=== PATIENT | male | born 1955 | race Two or more races ===

== ENCOUNTER 2020-03-02 23:19 | Inpatient (IN) | payer MEDICARE, MEDICAID ==
[~2020-03-02] VITALS: Ht 152.4 cm; Wt 57.7 kg
[2020-03-02] MEDS ORDERED: LIDOCAINE 2% JEL UROJET 10 ML MM ONE (23:27)
[2020-03-02] MEDS ORDERED: IV NS 0.9% 500 ML BAG IV ONE (23:30)
--- NOTE | 2020-03-02 23:35 | NUR ---
BIBRA 88 FROM C/O ALTERED MENTAL STATUS. PER RA, PATIENT WAS COMBATIVE WITH THE AMBULANCE PERSONEL. PATIENT IS AAOX2. NO SOB. BREATHING EVENLY AND UNLABORED ON ROOM AIR. CONNECTED TO THE PIZZA DRIVER.
[2020-03-02 23:38] LABS: BASOPHILS # (AUTO) 0.1 /CMM (0.0-0.2); BASOPHILS % (AUTO) 0.8 % (0.0-2.0); EOSINOPHILS % (AUTO) 17.4 % (0.0-6.0); HEMATOCRIT 39 % (39-51); HEMOGLOBIN 13.5 g/dL (13.5-17.5); LYMPHOCYTES # (AUTO) 2.6 /CMM (0.8-4.8); LYMPHOCYTES % (AUTO) 24.7 % (20.0-44.0); MEAN CORPUSCULAR HGB CONC 35 g/dl (31.0-36.0); MEAN CORPUSCULAR VOLUME 100 fL (80-96); MONOCYTES # (AUTO) 1.4 /CMM (0.1-1.30); MONOCYTES % (AUTO) 13.7 % (2.0-12.0); NEUTROPHILS # (AUTO) 4.5 /CMM (1.8-8.9); NEUTROPHILS % (AUTO) 43.4 % (43.0-81.0); PLATELET COUNT (AUTO) 141 /CMM (150-450); RED BLOOD CELL COUNT(AUTO) 3.87 MIL/uL (4.5-6.0); WHITE BLOOD COUNT (AUTO) 10.3 K/uL (4.3-11.0)
--- NOTE | 2020-03-02 23:38 | NUR ---
PATIENT'S BLOOD COLLECTED AND SENT TO THE LAB.
--- NOTE | 2020-03-02 23:43 | NUR ---
PATIENT TAKEN TO CT.
[2020-03-02 23:49] LABS: SERUM AMMONIA 138 umol/L (11-32)
--- NOTE | 2020-03-02 23:50 | NUR ---
RETURNED FROM CT.
[2020-03-02 23:54] LABS: CALCIUM, SERUM 9.6 mg/dL (8.5-10.1); CARBON DIOXIDE 20 mmol/L (21-32); CHLORIDE 97 mmol/L (98-107); CREATININE 1.3 mg/dL (0.6-1.3); GLUCOSE 112 mg/dL (74-106); POTASSIUM 4.1 mmol/L (3.5-5.1); SODIUM SERUM 129 mmol/L (136-145); UREA NITROGEN, BLOOD 18 mg/dL (7-18)
[2020-03-03 00:05] LABS: THYROID STIMULATING HORMONE 3.867 uIU/mL (0.358-3.74)
[2020-03-03 00:07] LABS: ALANINE AMINOTRANSFERASE 37 U/L (12-78); ALBUMIN 2.4 g/dL (3.4-5.0); ALCOHOL, BLOOD < 3 mg/dL (0-0); ALKALINE PHOSPHATASE 201 U/L (46-116); ASPARTATE AMINOTRANSFERASE 51 U/L (15-37); BILIRUBIN,DIRECT 2.2 mg/dL (0.0-0.2); BILIRUBIN,TOTAL 3.4 mg/dL (0.2-1.0)
[2020-03-03 00:08] LABS: ACETAMINOPHEN < 2 ug/ml (10-30)
[2020-03-03 00:37] LABS: APPEARANCE,URINE CLEAR (CLEAR); BILIRUBIN,URINE SMALL (NEGATIVE); BLOOD, URINE NEGATIVE Ery/uL (NEGATIVE); COLOR,URINE YELLOW (YELLOW); LEUKOCYTE ESTERASE ,URINE NEGATIVE (NEGATIVE); NITRITE, URINE NEGATIVE (NEGATIVE); PROTEIN,URINE NEGATIVE (NEGATIVE); UGLUCOSE NEGATIVE (NEGATIVE); UROBILINOGEN,URINE >=8.0 EU/dL (0.2)
--- NOTE | 2020-03-03 00:41 | NUR ---
DR. MOODY SPEAKING WITH KALEIGH RATLIFF DNP REGARDING ADMISSION
[2020-03-03 00:57] LABS: BACTERIA,URINE None seen /HPF (None Seen); MUCUS,URINE Few /LPF (None Seen); RBC,URINE 0-2 /HPF (0-2); SQUAMOUS EPITHELIAL CELL,UR Rare /HPF (None Seen); URINE AMORPHOUS URATE Few /HPF (None Seen); WBC,URINE 0-2 /HPF (0-3)
[2020-03-03] MEDS ORDERED: Z GUARD REMEDY 2 OZ OINT TP PRN (01:00)
[2020-03-03] MEDS ORDERED: LORAZEPAM INJ 2 MG/ML VIAL IV PRN (01:00)
[2020-03-03] MEDS ORDERED: ONDANSETRON HCL/PF 4 MG/2 ML VIAL IVP PRN (01:00)
--- NOTE | 2020-03-03 01:51 | NUR ---
BED ASSIGNMENT 328-1 TELE
--- NOTE | 2020-03-03 01:52 | NUR ---
PATIENT IS SLEEPING. EASILY AROUSABLE TO VERBAL STIMULI. CONNECTED TO MONITOR. BREATHING EVENLY AND UNLABORED ON ROOM AIR. SIDE RAILS ARE UP FOR SAFETY. BED AT THE LOWEST POSITION.
--- NOTE | 2020-03-03 01:59 | NUR ---
REPORT GIVEN TO HOUSTON RIOS FOR MICHAEL.
[2020-03-03 02:30] VITALS: BP 113/78
--- NOTE | 2020-03-03 02:30 | NUR ---
ADMISSION NOTE PT ADMITTED TO KALEIGH RATLIFF MORTGAGE ANALYST TELE DX OF HEPATIC ENCEPHALOPATHY AND HYPONATREMIA. PT BROUGHT IN BE EMS WITH AMS AND WAS COMBATIVE DURING TRANSPORT. AT THIS TIME PT IS LETHARGIC RESPONSIVE TO PAIN. PT IS NON VERBAL AT THIS TIME. PT BECOME SOMEWHAT COMBATIVE WHEN BEING REPOSITIONED AND TURNED. PT HAS RAC #20 GAUGE PATENT FLUSHED. SKIN IS INTACT AND DRY. ADMISSION ASSESSMENT TO BE PERFORMED WITH LIMITED ER RECORDS. PT IS POOR HISTORIAN AT THIS TIME. NEW ORDERS RECIEVED.
[2020-03-03] MEDS: IV NS 0.9% 1,000 ML IV PRN ×2 (02:41→22:24)
[2020-03-03 04:00] VITALS: BP 122/77
--- NOTE | 2020-03-03 07:30 | NUR ---
RECLAIMER NOTES PT IN BED, ASLEEP, EASY TO AROUSE, ALERT AND VERBALLY RESPONSIVE, NO COMPLAINT OF PAIN, BREATHING PATTERN NORMAL, CALL LIGHT WITHIN REACH, ASSISTED WITH NEEDS, IV FLUIDS INFUSING WELL, NEEDS ATTENDED.
[2020-03-03 08:00] VITALS: BP 118/83
[2020-03-03] MEDS: LACTULOSE 10 G/15 ML UDC (PYXIS) PO SCH ×4 (08:18→20:04)
[2020-03-03] MEDS: RIFAXIMIN 550 MG TABLET PO SCH ×2 (08:18→16:30)
[2020-03-03] MEDS: PANTOPRAZOLE 40 MG VIAL IV SCH (08:18)
--- NOTE | 2020-03-03 10:04 | NUR ---
Chemical Laboratory Assistant consult requested by Adrian Khanna DNP for hepatic encephalopathy, possible substance use, AMS. Per RN notes, patient is non-verbal at this time. Patient is not interviewable at this time. Plan: SW to follow-up with this patient when he is awake and alert. SW to remain available for all needs regarding this patient.
--- NOTE | 2020-03-03 11:43 | NUR ---
AIRPORT PLANNER NOTES PT IN BED, RESTING, AWAKE, ALERT, ABLE TO MAKE NEEDS KNOWN, COMPLIANT WITH MEDS, CALL LIGHT WITHIN REACH, ASSISTED WITH NEEDS, SEEN BY DR. REID, ALSO SEEN BY SPEECH THERAPIST, NEW ORDERS GIVEN, WILL CONTINUE TO MONITOR.
[2020-03-03 12:00] VITALS: BP 113/78
[2020-03-03 13:16] LABS: URINE SODIUM, RANDOM 95 mmol/l (40-220)
[2020-03-03 13:25] LABS: OSMOLALITY,URINE 489 mOS/kg (340-1090)
[2020-03-03 16:00] VITALS: BP 113/71
--- NOTE | 2020-03-03 16:44 | NUR ---
Public Address Technician consult requested by Adrian Khanna DNP for hepatic encephalopathy, possible substance use, AMS. This SW met with the patient at bedside. Patient is alert and oriented x4. SW found patient lying in bed diagonally, patient is Citizen [place] speaking, and this SW conducted this assessment in [place]. Patient is a 64-year-old male. Patient informed this SW that he has lived in [place] for 35 years. Patient reports that he is originally from [place]. SW inquired about patient family and friends, patient reports that his family is in [place] and his only friend/neighbor is Leesa . Patient provided verbal consent to inform neighbor Leesa that patient is in the hospital. Patient asked this SW regarding patient returning home, this SW informed the patient that the patient physician would provide approval to be discharged when patient is medically cleared. Patient informed this SW that he would need transportation back to his home as he does not drive and does not have family or friends who are able to pick him up after discharge. Patient asked this SW to provide him with updates regarding discharge as soon as this SW knows more information. This SW informed the patient that this SW would remain available for all needs. Plan: SW to follow-up with patient prior to discharge. SW to discuss transportation with case management for discharge planning. SW remains available for all needs regarding this patient.
--- NOTE | 2020-03-03 18:36 | NUR ---
PRODUCT MANAGER FINANCIAL SERVICES CLOSING NOTES PATIENT RESTING IN BED, AWAKE, A/O X3, WITH NO C/O PAIN. PATIENT ON RA WITH NO C/O SOB, NO ACUTE RESPIRATORY DISTRESS NOTED. PT ON TELE MONITOR WITH SR; HR 89 WITH PVC. PT IS CONTINENT WITH URINAL AT BEDSIDE. IV TO LT AC #20G ; SL, PATENT AND INTACT FLUSING WELL WITH NO SIGNS OF REDNESS OR SWELLING NOTED. BED IS AT LOWEST POSITION WITH SIDE RAILS UPX2 AND CALL LIGHT WITHIN REACH. WILL ENDORSE TO ONCOMING SHIFT.
--- NOTE | 2020-03-03 19:30 | NUR ---
CHANNEL MARKETING COORDINATOR OPENING NOTES REPORT RECIEVED FROM OZZY RIOS. PATIENT IN BED, AWAKE, A/O X3, DENIES PAIN. PATIENT ON RA WITH NO S/S OF SOB RESP EVEN AND UNLABORED. PT ON TELE MONITOR WITH SR; HR 92 WITH OCCASIONAL PVC PER RACE ENGINE BUILDER. CONTINENT WITH URINAL AT BEDSIDE. IV TO LT AC #20G ; PATENT AND INTACT IVF NS AT 75 INFUSING WITH NO SIGNS OF REDNESS OR SWELLING NOTED AT SITE. BED IS AT LOWEST POSITION WITH SIDE RAILS UPX2 BED ALARM ACTIVE AND CALL LIGHT WITHIN REACH. WILL CONT TO MONITOR.
[2020-03-03 20:00] VITALS: BP 123/84
[2020-03-04] VITALS: BP 111/71
[2020-03-04 04:00] VITALS: BP 111/72
[2020-03-04 07:15] LABS: BASOPHILS # (AUTO) 0.1 /CMM (0.0-0.2); BASOPHILS % (AUTO) 0.8 % (0.0-2.0); EOSINOPHILS % (AUTO) 21.6 % (0.0-6.0); HEMATOCRIT 35 % (39-51); HEMOGLOBIN 12.2 g/dL (13.5-17.5); LYMPHOCYTES # (AUTO) 1.6 /CMM (0.8-4.8); LYMPHOCYTES % (AUTO) 20.3 % (20.0-44.0); MEAN CORPUSCULAR HGB CONC 35 g/dl (31.0-36.0); MEAN CORPUSCULAR VOLUME 100 fL (80-96); MONOCYTES # (AUTO) 1.3 /CMM (0.1-1.30); MONOCYTES % (AUTO) 16.2 % (2.0-12.0); NEUTROPHILS # (AUTO) 3.2 /CMM (1.8-8.9); NEUTROPHILS % (AUTO) 41.1 % (43.0-81.0); PLATELET COUNT (AUTO) 113 /CMM (150-450); RED BLOOD CELL COUNT(AUTO) 3.51 MIL/uL (4.5-6.0); WHITE BLOOD COUNT (AUTO) 7.8 K/uL (4.3-11.0)
[2020-03-04 07:26] LABS: CALCIUM, SERUM 8.5 mg/dL (8.5-10.1); MAGNESIUM 1.8 mg/dL (1.8-2.4); PHOSPHORUS 3.3 mg/dL (2.5-4.9); POTASSIUM 4.2 mmol/L (3.5-5.1)
[2020-03-04 07:44] LABS: THYROID STIMULATING HORMONE 2.055 uIU/mL (0.358-3.74); URIC ACID 4.9 mg/dL (2.6-7.2)
[2020-03-04 08:00] VITALS: BP 117/76
--- NOTE | 2020-03-04 08:02 | NUR ---
NURSING STUDENT OPENING NOTES PATIENT RESTING COMFORTABLY IN BED, AWAKE, A/O X3, WITH NO C/O PAIN. PATIENT ON RA WITH NO C/O SOB, NO ACUTE RESPIRATORY DISTRESS NOTED. PT IS CONTINENT WITH URINAL AT BEDSIDE. IV TO LT AC #20G ; SL, PATENT AND INTACT WITH NO SIGNS OF REDNESS OR SWELLING NOTED. BED IS AT LOWEST POSITION WITH SIDE RAILS UPX2 AND CALL LIGHT WITHIN REACH. WILL CONTINUE TO MONITOR PATIENT THROUGHOUT SHIFT
[2020-03-04] MEDS: RIFAXIMIN 550 MG TABLET PO SCH ×2 (08:25→16:49)
[2020-03-04] MEDS: PANTOPRAZOLE 40 MG VIAL IV SCH (08:25)
[2020-03-04] MEDS: LACTULOSE 10 G/15 ML UDC (PYXIS) PO SCH ×4 (08:26→22:27)
[2020-03-04 12:04] LABS: EOSINOPHILS % (MANUAL) 18 % (0-4); LYMPHOCYTES % (MANUAL) 20 % (16-48); MONOCYTES % (MANUAL) 12 % (0-11.0); NEUTROPHILS % (MANUAL) 50 (42-76)
[2020-03-04 16:00] VITALS: BP 110/73
--- NOTE | 2020-03-04 18:23 | NUR ---
RN MS CLOSING NOTES PATIENT RESTING IN BED, AWAKE, A/O X4, WITH NO C/O PAIN. PATIENT ON RA WITH NO C/O SOB, NO ACUTE RESPIRATORY DISTRESS NOTED. PT IS CONTINENT WITH URINAL AT BEDSIDE. IV TO LT AC #20G ; RUNNING WITH NS @75 ML/HR-PATENT AND INTACT FLUSING WELL WITH NO SIGNS OF REDNESS OR SWELLING NOTED. BED IS AT LOWEST POSITION WITH SIDE RAILS UPX2 AND CALL LIGHT WITHIN REACH. WILL ENDORSE TO ONCOMING SHIFT.
[2020-03-04 20:00] VITALS: BP 107/66
--- NOTE | 2020-03-04 20:34 | NUR ---
MS/TELE/RN PATIENT IS AWAKE, ALERT, ORIENTED, COMFORTABLE, NO C/O PAIN, NO DISTRESS NOTED, CALL LIGHT IN REACH, WILL MONITOR.
[2020-03-04] MEDS: IV NS 0.9% 1,000 ML IV PRN (23:23)
--- NOTE | 2020-03-05 02:23 | NUR ---
MS/TELE/RN PATIENT IS SLEEPING AT THIS TIME, APPEAR COMFORTABLE, NO SIGNS OF DISTRESS NOTED, CALL LIGHT IN REACH, WILL CONTINUE TO MONITOR.
--- NOTE | 2020-03-05 06:22 | NUR ---
MS/TELE/RN PATIENT IS AWAKE, ALERT, ORIENTED, COMFORTABLE, NO C/O PAIN, NO DISTRESS NOTED, CALL LIGHT IN REACH, ALL NEEDS ATTENDED AT THIS TIME, WILL CONTINUE TO MONITOR.
[2020-03-05 07:13] LABS: BASOPHILS # (AUTO) 0.1 /CMM (0.0-0.2); BASOPHILS % (AUTO) 0.8 % (0.0-2.0); HEMATOCRIT 34 % (39-51); LYMPHOCYTES # (AUTO) 1.8 /CMM (0.8-4.8); LYMPHOCYTES % (AUTO) 20.9 % (20.0-44.0); MEAN CORPUSCULAR HGB CONC 35 g/dl (31.0-36.0); MEAN CORPUSCULAR VOLUME 100 fL (80-96); MONOCYTES # (AUTO) 1.2 /CMM (0.1-1.30); MONOCYTES % (AUTO) 13.6 % (2.0-12.0); NEUTROPHILS # (AUTO) 3.4 /CMM (1.8-8.9); PLATELET COUNT (AUTO) 116 /CMM (150-450); RED BLOOD CELL COUNT(AUTO) 3.44 MIL/uL (4.5-6.0); WHITE BLOOD COUNT (AUTO) 8.6 K/uL (4.3-11.0)
[2020-03-05 07:15] LABS: CALCIUM, SERUM 8.3 mg/dL (8.5-10.1); POTASSIUM 4.1 mmol/L (3.5-5.1)
[2020-03-05 07:39] LABS: EOSINOPHILS % (AUTO) 25.7 % (0.0-6.0)
--- NOTE | 2020-03-05 07:45 | NUR ---
MS/RN - Assessment Patient in bed awake, A/O X 3, denies pain, no complaints overnight, states feeling better and ready to go home, stable on room air. Skin is intact. IVF NS at 75 ml/hr infusing well on the LAC with no complications. Labs reviewed, no critical results seen. Fall and seizure precautions maintained. Patient updated on plan of care and in agreement. Anticipate discharge home today.
[2020-03-05 08:00] VITALS: BP 112/77
[2020-03-05] MEDS: RIFAXIMIN 550 MG TABLET PO SCH (08:07)
[2020-03-05] MEDS: LACTULOSE 10 G/15 ML UDC (PYXIS) PO SCH ×2 (08:07→13:00)
[2020-03-05] MEDS ORDERED: RIFA550T PO (08:17)
[2020-03-05 08:48] LABS: EOSINOPHILS % (MANUAL) 22 % (0-4); NEUTROPHILS % (MANUAL) 53 (42-76)
[2020-03-05 08:49] LABS: LYMPHOCYTES % (MANUAL) 20 % (16-48); MONOCYTES % (MANUAL) 5 % (0-11.0)
[2020-03-05] MEDS ORDERED: PANTOPRAZOLE 40 MG TABLET.DR PO SCH (09:00)
--- NOTE | 2020-03-05 10:00 | NUR ---
MS/RN - Notes Patient is watching TV, denies pain, stable on room air, afebrile. Patient for discharge home today, per patient, his friend Leesa will pick him up around 14:30.
--- NOTE | 2020-03-05 13:00 | NUR ---
MS/RN - Notes No change in condition, A/O x 3, no c/o pain, no apparent distress.
--- NOTE | 2020-03-05 15:52 | NUR ---
MS/RN - Discharge Patient is alert and oriented x 3, discharged home in stable condition, remain afebrile, denies pain, not in any form of distress, ambulatory, denies SI/HI, no visual or auditory hallucinations at this time. Reviewed discharge instructions with patient and he verbalized full understanding of all teachings including follow up with PCP in 1 week. Patient was advised to seek immediate medical attention for chest pain, shortness of breath, palpitations, abdominal pain or distention, intractable nausea and vomiting, diarrhea, weakness or any other emergent concerns. All belongings with patient and he deny any missing items. Patient refused photos to be taken of skin, no breakdown noted. Patient signed discharge paperwork and copies were given per protocol. Patient left the unit at 15:40 via private car.
== END 2020-03-05 15:45 | disposition home or self-care (01) | DRG 441 ==
LOC: ER 23:22 → TELE 03-03 01:54 → MED 03-04 11:03
PROVIDERS: ADMIT Family Medicine; ATTEND Family Medicine
DX: K72.00 Acute and subacute hepatic failure without coma (principal); E43 Unspecified severe protein-calorie malnutrition; E87.1 Hypo-osmolality and hyponatremia; K74.60 Unspecified cirrhosis of liver; D69.6 Thrombocytopenia, unspecified; E87.70 Fluid overload, unspecified
CPT/HCPCS: 36415; 70450-TC; 71045-TC; 80048-TC; 80061-TC; 80076-TC; 81000-TC; 82140-TC; 83735-TC; 83935-TC; 84100-TC; 84300-TC; 84443-TC; 84484-TC; 84550-TC; 85025-TC; 85730-TC; 87081-TC; 92526; 92611-TC; 97112-TC; 97116-TC; 97530-TC; 97535-TC; C9113; C9803; G0378; G0480; J3490; J7030; J7040

== ENCOUNTER 2020-03-16 16:29 | Inpatient (IN) | payer MEDICARE, OTHER ==
[~2020-03-16] VITALS: Ht 152.4 cm; Wt 59.4 kg
[~2020-03-16 16:29] MED LIST: RIFA550T PO
--- NOTE | 2020-03-16 16:58 | NUR ---
YOLI FROM HOME TO ER BED 6. AAOX3. NOT IN RESP DISTRESS. AMBULATORY. BROUGHT IN FOR ALTERED MENTAL STATUS. PER EMS REPORT, PT HAS BEEN ACTING NOT HIMSELF PER FAMILY. PT WAS REPORTED WITH HISTORY OF CIRRHOSIS. EMS REPORTS THAT BS WAS NOTED @ >500 WHEN THEY CHECK IT. BS UPON ASSESSMENT WAS 136. MD WAS AT THE BEDSIDE FOR EVAL. ORDERS RECEIVED, NOTED AND CARRIED OUT. IV LINE ALREADY ESTABLISHED BY THE EMS DIGITAL PRODUCTION ARTIST. BLOOD DRAWN AND GIVEN TO CLINICAL LABORATORY MEDICAL DIRECTOR
[2020-03-16 17:01] LABS: ABG BASE EXCESS -4.3 mmol/L; ABG OXYGEN SATURATION 45.8 % (92.0-98.5); ABG PCO2 33.8 mmHg (35.0-45.0); ABG PH 7.388 (7.350-7.450); ABG PO2 28.7 mmHg (75.0-100.0); COHb 0.1 % (0.5-1.5); MetHb 0.6 % (0.0-1.5); O2Hb 45.5 % (94.0-97.0); SITE, ABG Other; VENT MODE, BG room air
[2020-03-16 17:09] LABS: BASOPHILS # (AUTO) 0.1 /CMM (0.0-0.2); HEMATOCRIT 35 % (39-51); HEMOGLOBIN 11.7 g/dL (13.5-17.5); LYMPHOCYTES # (AUTO) 2.9 /CMM (0.8-4.8); LYMPHOCYTES % (AUTO) 28.2 % (20.0-44.0); MEAN CORPUSCULAR HGB CONC 34 g/dl (31.0-36.0); MEAN CORPUSCULAR VOLUME 103 fL (80-96); MONOCYTES # (AUTO) 1.2 /CMM (0.1-1.30); MONOCYTES % (AUTO) 11.4 % (2.0-12.0); NEUTROPHILS # (AUTO) 3.4 /CMM (1.8-8.9); NEUTROPHILS % (AUTO) 33.6 % (43.0-81.0); PLATELET COUNT (AUTO) 112 /CMM (150-450); RED BLOOD CELL COUNT(AUTO) 3.38 MIL/uL (4.5-6.0); WHITE BLOOD COUNT (AUTO) 10.2 K/uL (4.3-11.0)
[2020-03-16 17:18] LABS: EOSINOPHILS % (AUTO) 25.8 % (0.0-6.0)
[2020-03-16 17:20] LABS: ALCOHOL, BLOOD < 3 mg/dL (0-0); MAGNESIUM 1.9 mg/dL (1.8-2.4)
[2020-03-16 17:21] LABS: SERUM AMMONIA 135 umol/L (11-32)
[2020-03-16 17:24] LABS: CALCIUM, SERUM 8.5 mg/dL (8.5-10.1); CARBON DIOXIDE 18 mmol/L (21-32); CHLORIDE 102 mmol/L (98-107); CREATININE 1.1 mg/dL (0.6-1.3); GLUCOSE 115 mg/dL (74-106); POTASSIUM 4.7 mmol/L (3.5-5.1); SODIUM SERUM 132 mmol/L (136-145); UREA NITROGEN, BLOOD 21 mg/dL (7-18)
[2020-03-16 17:30] LABS: ALANINE AMINOTRANSFERASE 39 U/L (12-78); ALBUMIN 2.3 g/dL (3.4-5.0); ALKALINE PHOSPHATASE 190 U/L (46-116); ASPARTATE AMINOTRANSFERASE 49 U/L (15-37); BILIRUBIN,DIRECT 1.5 mg/dL (0.0-0.2); BILIRUBIN,TOTAL 2.4 mg/dL (0.2-1.0); LIPASE 402 U/L (73-393)
[2020-03-16] MEDS ORDERED: LACTULOSE 10 G/15 ML UDC (PYXIS) PO ONE (18:00)
--- NOTE | 2020-03-16 18:05 | NUR ---
CALLED NURSING SUP FOR TELE BED.
[2020-03-16] MEDS ORDERED: LACTULOSE 10 G/15 ML UDC (PYXIS) ONE (18:24)
[2020-03-16] MEDS ORDERED: ACETAMINOPHEN 325 MG TABLET PO PRN (19:00)
[2020-03-16] MEDS ORDERED: MAGNESIUM HYDROXIDE 30 ML UDC PO PRN (19:00)
[2020-03-16] MEDS ORDERED: ONDANSETRON HCL/PF 4 MG/2 ML VIAL IVP PRN (19:00)
[2020-03-16] MEDS ORDERED: HYDROCODONE/APAP 5/325MG TABLET PO PRN (19:00)
[2020-03-16] MEDS ORDERED: MAG HYDROX/AL HYDROX/SIMETH 30 ML UDC PO PRN (19:00)
[2020-03-16] MEDS ORDERED: ZOLPIDEM TARTRATE 5 MG TABLET PO PRN (19:00)
[2020-03-16] MEDS ORDERED: Z GUARD REMEDY 2 OZ OINT TP PRN (19:00)
[2020-03-16 19:10] LABS: BILIRUBIN,URINE Negative (NEGATIVE); BLOOD, URINE Negative Ery/uL (NEGATIVE); COLOR,URINE YELLOW (YELLOW); LEUKOCYTE ESTERASE ,URINE Negative (NEGATIVE); NITRITE, URINE Negative (NEGATIVE); PROTEIN,URINE Negative (NEGATIVE); UGLUCOSE Negative (NEGATIVE)
--- NOTE | 2020-03-16 20:05 | NUR ---
BED ASSIGNMENT 320-2
--- NOTE | 2020-03-16 20:37 | NUR ---
REPORT GIVEN TO BLANCA CAGE FOR MICHAEL
--- NOTE | 2020-03-16 20:53 | NUR ---
PT TRANSPORTED TO UNIT ON GURNEY WITH EMT AND RN AT BEDSIDE W/ ACLS PROTOCOL. NAD NOTED DURING TRANSPORT.
[2020-03-16 21:15] VITALS: BP 119/81
[2020-03-16 21:16] LABS: BAND % (MANUAL) 1 % (0.0-5.0); EOSINOPHILS % (MANUAL) 28 % (0-4); LYMPHOCYTES % (MANUAL) 23 % (16-48); MONOCYTES % (MANUAL) 10 % (0-11.0); NEUTROPHILS % (MANUAL) 38 (42-76)
--- NOTE | 2020-03-16 21:25 | NUR ---
MS RN NOTE PATIENT'S BLOOD SUGAR LEVEL IS 117 MG/DL. RESTING IN BED & WILL CONTINUE TO MONITOR.
--- NOTE | 2020-03-16 21:28 | NUR ---
MS RN NOTE PATIENT ALLOWED SKIN ASSESSMENT TO BOTH ARMS, ABDOMEN, LEGS & FEET BUT REFUSED SKIN ASSESSMENT OF BACK, BUTTOCKS, THIGHS & WANTED TO REST AT THIS TIME. WILL CONTINUE TO MONITOR CLOSELY FOR ANY CHANGES.
--- NOTE | 2020-03-16 21:30 | NUR ---
MS RN NOTE PATIENT HAD ORANGE & APPLE JUICE & TOLERATED WELL.
[2020-03-16] MEDS: IV NS 0.9% 1,000 ML IV PRN (22:18)
--- NOTE | 2020-03-16 23:15 | NUR ---
MS SOCIAL WORKER DELINQUENCY PREVENTION NOTE RECEIVED PATIENT VIA GURNEY TO ROOM 320-2. TRANSFERRED TO BED. A/OX2, ALTERED MENTAL STATUS, CONFUSED, SAMI SPEAKING ONLY. TOLERATING ROOM AIR. RESPIRATIONS EVEN AND UNLABORED. NO S/S SOB NOTED. IN NO APPARENT DISTRESS. IV ACCESS IN LAC#20G, PATENT/INTACT RUNNING WITH IVF NS @ 75 ML/HR. INITIAL PHYSICAL ASSESSMENT COMPLETED AT THIS TIME. SKIN ASSESSMENT DONE, PHOTOS TAKEN. PATIENT PROVIDED VERY LIMITED HISTORY, DID NOT WANT TO SPEAK MUCH. AMBULATORY WITH STAND BY ASSIST, FALL RISK. CONTINENT OF B & BM. COVID RAPID IS NEGATIVE IN ER. BRIM SHAPER OBTAINED VITALS AND COMPLETED BELONGINGS LIST. BED IS LOW AND LOCKED, BED ALARM ON. HOB ELEVATED IN SEMI FOWLERS, SIDE RAILS UP X2. CALL LIGHT WITHIN REACH. WILL CONTINUE TO MONITOR.
--- NOTE | 2020-03-17 02:34 | NUR ---
MS RN NOTE PATIENT IS SLEEPING COMFORTABLY AT THIS TIME. NO ACUTE CHANGES NOTED. AMBULATORY WITH ASSIST TO THE BATHROOM. WILL CONTINUE TO MONITOR.
--- NOTE | 2020-03-17 06:41 | NUR ---
MS RN CLOSING NOTES PATIENT SLEPT WELL AT NIGHT. A & O X 2-3, GREENLAND[place] SPEAKING ONLY. TOLERATING ROOM AIR. RESPIRATIONS EVEN AND UNLABORED. NO S/S SOB NOTED. IN NO APPARENT DISTRESS. IV ACCESS IN LAC#20G, PATENT/INTACT RUNNING WITH IVF NS @ 75 ML/HR. NO C/O PAIN VERBALIZED. BED IN LOW LOCKED POSITION. WILL ENDORSE TO AM RN FOR MICHAEL.
[2020-03-17 07:07] LABS: BASOPHILS # (AUTO) 0.1 /CMM (0.0-0.2); BASOPHILS % (AUTO) 1.3 % (0.0-2.0); HEMATOCRIT 34 % (39-51); HEMOGLOBIN 11.9 g/dL (13.5-17.5); LYMPHOCYTES # (AUTO) 2.2 /CMM (0.8-4.8); LYMPHOCYTES % (AUTO) 27.6 % (20.0-44.0); MEAN CORPUSCULAR HGB CONC 35 g/dl (31.0-36.0); MEAN CORPUSCULAR VOLUME 102 fL (80-96); MONOCYTES % (AUTO) 12.7 % (2.0-12.0); NEUTROPHILS # (AUTO) 2.4 /CMM (1.8-8.9); NEUTROPHILS % (AUTO) 30.7 % (43.0-81.0); PLATELET COUNT (AUTO) 99 /CMM (150-450); RED BLOOD CELL COUNT(AUTO) 3.37 MIL/uL (4.5-6.0); WHITE BLOOD COUNT (AUTO) 7.9 K/uL (4.3-11.0)
[2020-03-17 07:11] LABS: EOSINOPHILS % (AUTO) 27.7 % (0.0-6.0)
[2020-03-17 07:14] LABS: BILIRUBIN,TOTAL 1.9 mg/dL (0.2-1.0); CALCIUM, SERUM 8.4 mg/dL (8.5-10.1); CREATININE 0.8 mg/dL (0.6-1.3); MAGNESIUM 1.8 mg/dL (1.8-2.4); PHOSPHORUS 3.5 mg/dL (2.5-4.9); TOTAL PROTEIN, SERUM 6.2 g/dL (6.4-8.2)
--- NOTE | 2020-03-17 07:22 | NUR ---
MS RN NOTE NO FAMILY PHONE NUMBER FOUND TO INFORM ABOUT PATIENT'S ADMISSION AT [facility]. PATIENT UNABLE TO PROVIDE PHONE NUMBER AT THIS TIME.
[2020-03-17 08:00] VITALS: BP_SYST 107; BP_SYST 112; BP_DIAS 63; BP_DIAS 69
[2020-03-17] MEDS: PANTOPRAZOLE 40 MG VIAL IV SCH (08:42)
[2020-03-17] MEDS: RIFAXIMIN 550 MG TABLET PO SCH ×2 (08:42→17:07)
[2020-03-17 08:56] LABS: BAND % (MANUAL) 1 % (0.0-5.0); EOSINOPHILS % (MANUAL) 19 % (0-4); LYMPHOCYTES % (MANUAL) 30 % (16-48); MONOCYTES % (MANUAL) 6 % (0-11.0); NEUTROPHILS % (MANUAL) 44 (42-76)
[2020-03-17] MEDS ORDERED: LACTULOSE 10 G/15 ML UDC (PYXIS) PO ONE (09:00)
--- NOTE | 2020-03-17 11:30 | NUR ---
Spoke with family member Eyad [phone] . Updated with plane of care ; verbalized understanding. Eyad is willing to talk to doctor. Information provided to dr. Rivera.
[2020-03-17] MEDS ORDERED: LACTULOSE 10 G/15 ML UDC (PYXIS) PO PRN (12:00)
[2020-03-17] MEDS: IV NS 0.9% 1,000 ML IV PRN (13:00)
[2020-03-17 16:00] VITALS: BP 102/66
--- NOTE | 2020-03-17 16:40 | NUR ---
A new IV line inserted to the right arm g 22, flushing well. Continue with IV fluid as ordered.
--- NOTE | 2020-03-17 18:27 | NUR ---
Patient is resting in room. Breathing unlabored and even on room air. Oriented x3 , ambulatory. IV fluids running as ordered. Lactulose administrated as ordered. FAmily contacted and updated with plan of care. Safety precautions implemented and call light within reach.All needs attended , patient kept comfortable at all times. Will endorse to next shift for MICHAEL
--- NOTE | 2020-03-17 19:48 | NUR ---
RN OPENING NOTES PATIENT RECEIVED RESTING IN BED A/O X 3. STABLE ON RA WITH BREATHING EVEN AND UN.LABORED, NO SOB NOTED. NO SIGNS OF ACUTE DISTRESS. NO COMPLAINTS OF PAIN OR DISCOMFORT AT THE MOMENT. R FA #22 RUNNING NS @ 75 ML/HR. SAFETY PRECAUTIONS IN PLACE WITH BED IN LOWEST POSITION, CALL LIGHT WITHIN REACH, BREAKS ON, SIDE RAILS UP. WILL CONTINUE TO MONITOR THROUGHOUT THE NIGHT.
[2020-03-17 20:53] VITALS: BP 95/63
--- NOTE | 2020-03-18 02:36 | NUR ---
BLANCA NOTES PATIENT YELLING, REFUSING TO BE CLEANED. Addendum: 03/18/20 at 0648 by MOHAN ESPINOZA RN WRONG PATIENT
[2020-03-18] MEDS: IV NS 0.9% 1,000 ML IV PRN (06:06)
[2020-03-18 06:45] LABS: BASOPHILS # (AUTO) 0.1 /CMM (0.0-0.2); BASOPHILS % (AUTO) 1.3 % (0.0-2.0); HEMATOCRIT 36 % (39-51); HEMOGLOBIN 12.2 g/dL (13.5-17.5); LYMPHOCYTES % (AUTO) 30.5 % (20.0-44.0); MEAN CORPUSCULAR HGB CONC 34 g/dl (31.0-36.0); MEAN CORPUSCULAR VOLUME 102 fL (80-96); MONOCYTES # (AUTO) 0.9 /CMM (0.1-1.30); MONOCYTES % (AUTO) 13.1 % (2.0-12.0); NEUTROPHILS # (AUTO) 1.8 /CMM (1.8-8.9); NEUTROPHILS % (AUTO) 27.1 % (43.0-81.0); PLATELET COUNT (AUTO) 81 /CMM (150-450); RED BLOOD CELL COUNT(AUTO) 3.51 MIL/uL (4.5-6.0); WHITE BLOOD COUNT (AUTO) 6.7 K/uL (4.3-11.0)
--- NOTE | 2020-03-18 06:47 | NUR ---
RN CLOSING NOTES PATIENT RESTING IN BED A/O X 3. STABLE ON RA WITH BREATHING EVEN AND UN.LABORED, NO SOB NOTED. NO SIGNS OF ACUTE DISTRESS. NO COMPLAINTS OF PAIN OR DISCOMFORT AT THE MOMENT. R FA #22 RUNNING NS @ 75 ML/HR. SAFETY PRECAUTIONS IN PLACE WITH BED IN LOWEST POSITION, CALL LIGHT WITHIN REACH, BREAKS ON, SIDE RAILS UP.ALL NEEDS ATTENDED TO. WILL ENDORSE TO ON COMING SHIFT ABOUT MICHAEL.
--- NOTE | 2020-03-18 07:18 | NUR ---
MS RN OPENING NOTES RECEIVED PT AWAKE IN BED IN NO ACUTE SIGNS OF DISTRESS. A/O X 3. BENINESE SPEAKING, DENIES PAIN OR DISCOMFORTS AT THIS TIME. ON RA, BREATHING EVEN AND UNLABORED. IV ACCESS ON RFA #22G RUNNING NS @ 75 ML/HR, NO S/S OF INFILTRATION NOTED. SAFETY PRECAUTIONS IN PLACE: BED IN LOWEST LOCKED POSITION, CALL LIGHT WITHIN REACH, BREAKS ON, SIDE RAILS UP. WILL CONTINUE TO MONITOR PT ACCORDINGLY.
[2020-03-18 07:25] LABS: BILIRUBIN,TOTAL 2.2 mg/dL (0.2-1.0); CALCIUM, SERUM 8.4 mg/dL (8.5-10.1); CREATININE 0.8 mg/dL (0.6-1.3); TOTAL PROTEIN, SERUM 6.4 g/dL (6.4-8.2)
[2020-03-18 08:00] VITALS: BP 115/64
[2020-03-18] MEDS: RIFAXIMIN 550 MG TABLET PO SCH (08:26)
[2020-03-18] MEDS: PANTOPRAZOLE 40 MG VIAL IV SCH (08:26)
[2020-03-18 08:32] LABS: EOSINOPHILS % (MANUAL) 22 % (0-4); LYMPHOCYTES % (MANUAL) 36 % (16-48); MONOCYTES % (MANUAL) 4 % (0-11.0); NEUTROPHILS % (MANUAL) 38 (42-76)
[2020-03-18] MEDS ORDERED: LACT10SO PO (10:30)
--- NOTE | 2020-03-18 16:00 | NUR ---
RN DISCHARGED NOTES PT DISCHARGED HOME IN STABLE CONDITION. A/O X3, [place] SPEAKING. ALL NEEDS AND CARE ATTENDED WELL. V/S TAKEN, STABLE AND RECORDED. PHOTOS OF SKIN ISSUES TAKEN AND FILED ON CHART. PIV REMOVED WITH NO BLEEDING NOTED, DRY DRESSING APPLIED TO SITE. NAME ARMBAND REMOVED. HEALTH TEACHINGS/DISCHARGE INSTRUCTIONS GIVEN TO PT TRANSLATED IN [place] BY [place] SPEAKING STAFF AND PT VERBALIZED UNDERSTANDING. PT LEFT UNIT AMBULATORY ACCOMPANIED BY RAMEZ MANRIQUEZ TO A WAITING TAXI OUTSIDE OF THE HOSPITAL LOBBY AT 1535. PT'S PARTNER NAMED DEB CALLED AND STATED THAT SHE WILL BE WAITING FOR PT IN HIS APARTMENT. MD AND CHARGE NURSE AWARE OF DISCHARGE.
[2020-03-18] MEDS ORDERED: RIFAXIMIN 550 MG TABLET PO SCH (17:00)
[2020-03-19] MEDS ORDERED: PANTOPRAZOLE 40 MG TABLET.DR PO SCH (07:30)
== END 2020-03-18 15:30 | disposition home or self-care (01) | DRG 442 ==
LOC: ER 16:32 → TELE 20:13 → MED 20:53
PROVIDERS: ADMIT Nurse Practitioner Acute Care
DX: K72.00 Acute and subacute hepatic failure without coma (principal); E44.0 Moderate protein-calorie malnutrition; E87.1 Hypo-osmolality and hyponatremia; N17.9 Acute kidney failure, unspecified; D53.9 Nutritional anemia, unspecified; I25.10 Atherosclerotic heart disease of native coronary artery without angina pectoris; K70.30 Alcoholic cirrhosis of liver without ascites; Z79.899 Other long term (current) drug therapy; D69.6 Thrombocytopenia, unspecified; E87.70 Fluid overload, unspecified; I70.0 Atherosclerosis of aorta; Z91.19 Patient's noncompliance with other medical treatment and regimen; I10 Essential (primary) hypertension
CPT/HCPCS: 36415; 36600; 70450-TC; 71045-TC; 76705-TC; 80048-TC; 80053-TC; 80061-TC; 80076-TC; 81001; 82140-TC; 82962-TC; 83690-TC; 83735-TC; 84100-TC; 84484-TC; 85025-TC; 85730-TC; 87081-TC; C9113; C9803; G0378; G0480; J7030